=== PATIENT | male | born 1945 | race Caucasian/White ===

== ENCOUNTER 2016-05-27 10:05 | Emergency (ER) | payer BC, MEDICARE ==
[~2016-05-27] VITALS: Ht 177.8 cm; Wt 83.9 kg
--- OUTSIDE RECORDS SUMMARY | 2016-05-27 10:16 | XMS REPORT | Continuity of Care Document ---
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 If you do not see the information that you expected, contact Release of Information in the Health Information Management department at [phone] for further assistance in locating additional records.[facility] Active Allergies and Adverse Reactions No Known Allergies Current Medications Prescription Sig. Disp. Refills Start End Date Status Date IBUPROFEN (ADVIL PO) Take by mouth as Needed. Active HYDROcodone/acetaminophen Take 1 Tab by mouth every Active (NORCO; VICODIN) 5-325 mg 4 hours as needed for tablet Pain GUAIFENESIN (MUCINEX PO) Take by mouth. Active Active Problems No known active problems Social History Tobacco Use Types Packs/Day Years Used Date Never Smoker Last Filed Vital Signs Vital Sign Reading Time Taken Blood Pressure 148/68 01/22/2016 10:39 AM CDT Pulse 68 01/22/2016 10:19 AM CDT Temperature 36.4 C (97.5 F) 01/22/2016 9:50 AM CDT Respiratory Rate 16 01/22/2016 9:50 AM CDT Height 1.778 m (5' 10") 01/22/2016 9:50 AM CDT Weight 81.647 kg (180 lb) 01/22/2016 9:50 AM CDT Body Mass Index 25.83 01/22/2016 9:50 AM CDT Oxygen Saturation 100% 01/22/2016 10:39 AM CDT Plan of Care Health Maintenance Due Date Last Done Comments Hepatitis C Screening 1944 Physical (Comprehensive) 1951 Exam Pertussis Vaccine 1955 Tetanus Vaccine 1961 Colorectal Cancer 1994 Screening Shingles Vaccine 2004 Prevnar/Pneumovax (#1) 2009 Influenza Vaccine 11/23/2015 Results from Last 3 Months Not on file
--- NOTE | 2016-05-27 11:09 | ED GU-Male ---
General Stated Complaint: PROSTATE PROBLEMS Source: patient Exam Limitations: no limitations History of Present Illness Time seen by provider: 11:06 Initial Comments To ER with perirectal pain/perineal pain for the past 4 days. [facility] Historically, his PSA had been normal last year it was 2. This year it raised to 17. However he's had no problems with urination or pain. Starting 4 days ago he had severe perineal/perirectal pain worse when sitting on his exercise bike. He states he is still able to urinate though he does have a burning sensation upon urination. 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 Timing/Duration: week, getting worse Location: other Radiation: none Activities at Onset: none Prior Genitourinary Problems: none Associated Symptoms: No abdominal pain, No dysuria, No fever/chills, No lower back pain, No nausea/vomiting, No urinary frequency Allergies and Home Medications Allergies Coded Allergies: No Allergy Information Available (Unverified , 05/27/16) Home Medications 1 TAB PO BID (Reported) Hydrocodone/Acetaminophen 1 Each Tablet 1 EACH PO Daily and Noon (Reported) Ibuprofen 800 Mg Tablet 800 MG PO HS (Reported) [place] 3 Polyunsat Fatty Acids 1,000 Mg Cap 1,000 MG PO DAILY (Reported) Sildenafil Citrate 100 Mg Tablet 100 MG PO PRN (Reported) Tadalafil 2.5 Mg Tablet 2.5 MG PO DAILY (Reported) Constitutional: see HPINo chills, No fever EENTM: see HPI Respiratory: no symptoms reported Cardiovascular: no symptoms reported Genitourinary: see HPI burningdenies dysuria, denies frequency, denies flank pain, denies hematuria, denies incontinence, denies pain Musculoskeletal: no symptoms reported Skin: no symptoms reported Psychiatric/Neurological: No Symptoms Reported Endocrine: No Symptoms Reported Hematologic/Lymphatic: No Symptoms Reported Past Pcovvwl-Eqrcmc-Nwkvnv Hx Patient Social History Recent Foreign Travel: No Contact w/Someone Who Travel: No Physical Exam Vital Signs Vital Sign - Last 12Hours 05/27/16 11:09 Pulse 66 Resp 18 B/P 158/90 Pulse Ox 97 O2 Delivery Room Air Capillary Refill : General Appearance: WD/WN no apparent distress HEENT: PERRL/EOMI normal ENT inspection Neck: non-tender full range of motion Cardiovascular: regular rate, rhythm no murmur Respiratory: normal breath sounds no respiratory distress no accessory muscle use Gastrointestinal: normal bowel sounds non tender soft Rectal: tenderness (prostate is significantly enlarged and very tender and firm on digital rectal exam) Extremities: normal range of motion non-tender Neurologic/Psychiatric: alert normal mood/affect oriented x 3 Skin: normal color warm/dry Progress/Results/Core Measures Results/Orders Lab Results Laboratory Tests Test 05/27/16 11:02 Range/Units Alanine Aminotransferase (ALT/SGPT) 20 0-55 U/L Albumin 4.2 3.2-4.5 G/DL Alkaline Phosphatase 72 40-136 U/L Anion Gap 9 5-14 MMOL/L Aspartate Amino Transf (AST/SGOT) 18 5-34 U/L BUN/Creatinine Ratio 24 Basophils # (Auto) 0.0 0.0-0.1 10^3/uL Basophils (%) (Auto) 0 0-10 % Blood Urea Nitrogen 25 H 7-18 MG/DL Calcium Level 9.3 8.5-10.1 MG/DL Carbon Dioxide Level 23 21-32 MMOL/L Chloride Level 106 98-107 MMOL/L Creatinine 1.03 0.60-1.30 MG/DL Eosinophils # (Auto) 0.1 0.0-0.3 10^3/uL Eosinophils (%) (Auto) 1 0-10 % Estimat Glomerular Filtration Rate > 60 Glucose Level 107 H 70-105 MG/DL Hematocrit 39 L 40-54 % Hemoglobin 13.4 13.3-17.7 G/DL Lymphocytes # (Auto) 1.4 1.0-4.0 X 10^3 Lymphocytes (%) (Auto) 16 12-44 % Mean Corpuscular Hemoglobin 31 25-34 PG Mean Corpuscular Hemoglobin Concent 34 32-36 G/DL Mean Corpuscular Volume 91 80-99 FL Mean Platelet Volume 9.9 7.4-10.4 FL Monocytes # (Auto) 1.2 H 0.0-1.0 X 10^3 Monocytes (%) (Auto) 13 H 0-12 % Neutrophils # (Auto) 6.4 1.8-7.8 X 10^3 Neutrophils (%) (Auto) 70 42-75 % Platelet Count 265 130-400 10^3/uL Potassium Level 4.5 3.6-5.0 MMOL/L Red Blood Count 4.32 L 4.35-5.85 10^6/uL Red Cell Distribution Width 13.8 10.0-14.5 % Sodium Level 138 135-145 MMOL/L Total Bilirubin 0.4 0.1-1.0 MG/DL Total Protein 6.7 6.4-8.2 G/DL Urine Bacteria NEGATIVE /HPF Urine Bilirubin NEGATIVE NEGATIVE Urine Casts NONE /LPF Urine Clarity CLEAR Urine Color YELLOW Urine Crystals NONE /LPF Urine Culture Indicated NO Urine Glucose (UA) NEGATIVE NEGATIVE Urine Ketones NEGATIVE NEGATIVE Urine Leukocyte Esterase NEGATIVE NEGATIVE Urine Mucus NEGATIVE /LPF Urine Nitrite NEGATIVE NEGATIVE Urine Protein NEGATIVE NEGATIVE Urine RBC RARE /HPF Urine RBC (Auto) NEGATIVE NEGATIVE Urine Specific [place] 1.015 L 1.016-1.022 Urine Squamous Epithelial Cells NONE /HPF Urine Urobilinogen NORMAL NORMAL MG/DL Urine WBC NONE /HPF Urine pH 6 5-9 White Blood Count 9.2 4.3-11.0 10^3/uL My Orders Orders-MARIJA WINSTON APRN Ua Culture If Indicated (05/27/16 10:59) Cbc With Automated Diff (05/27/16 10:59) Comprehensive Metabolic Panel (05/27/16 10:59) Saline Lock/Iv-Start (05/27/16 10:59) Ct Abdomen/Pelvis W (05/27/16 10:59) Psa Screen (05/27/16 10:59) Iohexol Injection (Omnipaque 350 Mg/Ml 1 (05/27/16 12:00) Ns (Ivpb) (Sodium Chloride 0.9% Ivpb Bag (05/27/16 12:00) Ns Iv 500 Ml (Sodium Chloride 0.9%) (05/27/16 12:00) Medications Given in ED Current Medications Medications Dose Ordered Sig/Ari Route Start Time Stop Time Status Last Admin Dose Admin Iohexol 100 ml ONCE ONCE IV 05/27/16 12:00 05/27/16 12:01 DC 05/27/16 11:56 100 ML Sodium Chloride 100 ml ONCE ONCE IV 05/27/16 12:00 05/27/16 12:01 DC 05/27/16 11:56 80 ML Vital Signs/I&O Vital Sign - Last 12Hours 05/27/16 11:09 Pulse 66 Resp 18 B/P 158/90 Pulse Ox 97 O2 Delivery Room Air Departure Communication Progress Notes I did discuss the case with Dr. Green who recommends Levaquin 750 daily for 2 weeks and Pyridium Impression Impression: Primary Impression: Prostatitis Disposition: 01 HOME, SELF-CARE Condition: Stable Departure-Patient Inst. Decision time for Depature: 13:07 Referrals: NO,LOCAL PHYSICIAN (PCP) Primary Care Physician BURKE GREEN MD Patient Instructions: Prostatitis (DC) Add. Discharge Instructions: 1. Drink plenty of fluids [facility]. [facility]/approval to see Dr. Green 3. Return to ER for any worsening such as inability to urinate, fevers Scripts Phenazopyridine HCl (Pyridium)100 Mg [id number] Mg PO TID #9 TAB Prov:MARIJA WINSTON APRN 05/27/16 Levofloxacin (Levaquin)750 Mg [id number] Mg PO DAILY #14 TAB Prov:MARIJA WINSTON COMMERCIAL RETOUCHER 05/27/16 Copy Copies To 1: BURKE GREEN MD, PETER J APRN May 27, 2016 11:09
[2016-05-27 11:13] LABS: BASOPHILS % (AUTO) 0 % (0-10); EOSINOPHILS # (AUTO) 0.1 10^3/uL (0.0-0.3); EOSINOPHILS % (AUTO) 1 % (0-10); LYMPHOCYTES # (AUTO) 1.4 X 10^3 (1.0-4.0); LYMPHOCYTES % (AUTO) 16 % (12-44); MEAN CORPUSCULAR HEMOGLOBIN 31 PG (25-34); MEAN CORPUSCULAR HGB CONC 34 G/DL (32-36); MEAN CORPUSCULAR VOLUME 91 FL (80-99); MEAN PLATELET VOLUME 9.9 FL (7.4-10.4); MONOCYTES # (AUTO) 1.2 X 10^3 (0.0-1.0); MONOCYTES % (AUTO) 13 % (0-12); NEUTROPHILS # (AUTO) 6.4 X 10^3 (1.8-7.8); NEUTROPHILS % (AUTO) 70 % (42-75); PLATELET COUNT 265 10^3/uL (130-400); RED BLOOD COUNT 4.32 10^6/uL (4.35-5.85); RED CELL DISTRIBUTION WIDTH 13.8 % (10.0-14.5); WHITE BLOOD COUNT 9.2 10^3/uL (4.3-11.0)
[2016-05-27 11:14] LABS: BILIRUBIN,URINE NEGATIVE (NEGATIVE); KETONES,URINE NEGATIVE (NEGATIVE); LEUKOCYTE ESTERASE ,URINE NEGATIVE (NEGATIVE); NITRITE,URINE NEGATIVE (NEGATIVE); PH,URINE 6 (5-9); PROTEIN,URINE NEGATIVE (NEGATIVE); UROBILINOGEN,URINE NORMAL (NORMAL)
[2016-05-27] MEDS ORDERED: SILD100T PO (11:27)
[2016-05-27] MEDS ORDERED: OMG1KC PO (11:27)
[2016-05-27] MEDS ORDERED: TADA2.5T PO (11:27)
[2016-05-27] MEDS ORDERED: IBUP-1780 PO (11:27)
[2016-05-27] MEDS ORDERED: BETAPROSTATE PO (11:27)
[2016-05-27] MEDS ORDERED: HYDR-3812 PO (11:27)
[2016-05-27 11:37] LABS: ALANINE AMINOTRANSFERASE 20 U/L (0-55); ALBUMIN 4.2 G/DL (3.2-4.5); ANION GAP 9 MMOL/L (5-14); ASPARTATE AMINO TRANSFERASE 18 U/L (5-34); BILIRUBIN,TOTAL 0.4 MG/DL (0.1-1.0); BLOOD UREA NITROGEN 25 MG/DL (7-18); BUN/CREATININE RATIO 24; CALCIUM 9.3 MG/DL (8.5-10.1); CARBON DIOXIDE 23 MMOL/L (21-32); CHLORIDE 106 MMOL/L (98-107); CREATININE SERUM 1.03 MG/DL (0.60-1.30); GFR ESTIMATED > 60; GLUCOSE 107 MG/DL (70-105); POTASSIUM 4.5 MMOL/L (3.6-5.0); SODIUM 138 MMOL/L (135-145); TOTAL PROTEIN 6.7 G/DL (6.4-8.2)
[2016-05-27] MEDS ORDERED: NS 100 ML (IVPB) BAG IV ONE (12:00)
[2016-05-27] MEDS ORDERED: IOHEXOL 350 MG/ML 100 ML (OMNIPAQUE 350) VIAL IV ONE (12:00)
[2016-05-27] MEDS ORDERED: NS IV 500 ML 500 ML IV SCH (12:00)
--- NOTE | 2016-05-27 12:49 | Diagnostic Imaging Report ---
PROCEDURE: CT abdomen and pelvis with contrast. TECHNIQUE: Multiple contiguous axial images were obtained through the abdomen and pelvis after administration of intravenous contrast. INDICATION: Pelvic pain, history of prostatomegaly. COMPARISON: None. DISCUSSION: The visualized lung bases are unremarkable. Normal heart size. No pleural or pericardial fluid. Antecedent granulomatous disease is noted, benign. A 1.9 x 1.2-cm low-attenuation nodule within the right hepatic dome is indeterminate though statistically represents a cyst or hemangioma in the absence of a known primary malignancy. The liver is otherwise unremarkable. The gallbladder, pancreas, stomach, spleen, and adrenal glands are unremarkable. Simple-appearing 3-cm left renal cyst, likely benign. No hydronephrosis or renal stone identified. Linear low-attenuation focus within the posterior right kidney likely represents scarring. The prostate is enlarged measuring 5.8 x 3.6 cm. Urinary bladder is unremarkable. Mild diverticulosis with no secondary evidence for diverticulitis. Constipation is noted. No obstruction, pneumatosis, pneumoperitoneum. The abdominal aorta is normal in caliber. No pathologically enlarged lymph nodes identified. No ascites. Degenerative changes are present within the spine. No acute osseous abnormality identified. IMPRESSION: 1. Prostatomegaly. 2. Probable cysts noted within the liver and left kidney. 3. Constipation. Dictated by: Dictated on workstation # [id number]
[2016-05-27] MEDS ORDERED: PHEN-639 PO (13:09)
[2016-05-27] MEDS ORDERED: LEVO750T9 PO (13:09)
[2016-05-27 13:33] VITALS: BP 162/74
== END 2016-05-27 13:39 | disposition home or self-care (01) ==
LOC: EDUNIT# 10:05 → ER 10:12
DX: N41.9 Inflammatory disease of prostate, unspecified (principal)
CPT/HCPCS: 36415; 74177; 80053; 81000; 84153; 85025; 96360

== ENCOUNTER → 2016-07-24 | Outpatient (CLI) | payer MEDICARE, OTHER ==
[~2016-07-24] MED LIST: BETAPROSTATE PO; HYDR-3812 PO; IBUP-1780 PO; LEVO750T9 PO; OMG1KC PO; PHEN-639 PO; SILD100T PO; TADA2.5T PO
--- NOTE | 2016-07-24 09:32 | Diagnostic Imaging Report ---
PROCEDURE: CT sinuses without contrast TECHNIQUE: Multiple contiguous axial images were obtained through the sinuses without the use of intravenous contrast. Coronal and sagittal reformations were then performed. INDICATION: Chronic sinusitis. FINDINGS: Bilateral air-fluid levels in the maxillary sinuses are seen. There is some mild mucosal thickening in the ostiomeatal complex region on both sides resulting in its narrowing. There is minimal mucosal thickening in the rest of the maxillary sinuses. The ethmoid air cells and the sphenoidal sinuses are clear. The frontal sinuses are relatively small in size and are clear. There is minimal mucosal thickening along the inferior turbinates and minimal nasoseptal deviation to the left with no mass or obliteration of the nasal cavity. Mild deformity in the nasal bones is suggestive of an old nasal bone fracture on both sides. The orbits appear grossly unremarkable. The mastoid air cells and middle ear cavities appear clear. IMPRESSION: There is mild mucosal thickening along the ostiomeatal complex of the maxillary sinuses with associated bilateral maxillary air-fluid levels which may relate to acute sinusitis or retained secretions. Correlate clinically. Dictated by: Dictated on workstation # [id number]
== END ==
LOC: RAD 08:32
PROVIDERS: ATTEND Otolaryngology Otolaryngology/Facial Plastic Surgery
DX: J32.9 Chronic sinusitis, unspecified (principal)
CPT/HCPCS: 70486

== ENCOUNTER → 2017-05-08 | Outpatient (CLI) | payer MEDICARE ==
[~2017-05-08] MED LIST changes: +ACHD5005 PO; -HYDR-3812 PO
--- NOTE | 2017-05-08 14:23 | Diagnostic Imaging Report ---
INDICATION: Injury to the right shoulder. TIME OF EXAM: 01:21 p.m. FINDINGS: Internal and external rotation views of the right shoulder demonstrate normal glenohumeral and acromioclavicular alignment. Acromiohumeral space is normal. No fracture or dislocation is seen. There is a calcified granuloma in the right upper lobe. IMPRESSION: No acute bony abnormality is detected. Report was faxed to Maylin Escamilla by patricia at 2:25 p.m. Dictated by: Dictated on workstation # [id number]
== END ==
LOC: RAD 12:44
PROVIDERS: ATTEND Nurse Practitioner Family
DX: M25.511 Pain in right shoulder (principal)
CPT/HCPCS: 73030

== ENCOUNTER 2019-05-17 09:46 | Emergency (ER) | payer OTHER, MEDICARE ==
[~2019-05-17] VITALS: Ht 177.8 cm; Wt 83.9 kg
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
[2019-05-17 10:08] LABS: BASOPHILS % (AUTO) 0 % (0-10); EOSINOPHILS # (AUTO) 0.6 10^3/uL (0.0-0.3); EOSINOPHILS % (AUTO) 8 % (0-10); HEMATOCRIT 42 % (40-54); HEMOGLOBIN 14.3 G/DL (13.3-17.7); LYMPHOCYTES # (AUTO) 1.6 X 10^3 (1.0-4.0); LYMPHOCYTES % (AUTO) 19 % (12-44); MEAN CORPUSCULAR HEMOGLOBIN 30 PG (25-34); MEAN CORPUSCULAR HGB CONC 34 G/DL (32-36); MEAN CORPUSCULAR VOLUME 89 FL (80-99); MEAN PLATELET VOLUME 10.2 FL (7.4-10.4); MONOCYTES % (AUTO) 12 % (0-12); NEUTROPHILS # (AUTO) 4.9 X 10^3 (1.8-7.8); NEUTROPHILS % (AUTO) 60 % (42-75); PLATELET COUNT 255 10^3/uL (130-400); RED CELL DISTRIBUTION WIDTH 14.1 % (10.0-14.5); WHITE BLOOD COUNT 8.2 10^3/uL (4.3-11.0)
[2019-05-17 10:26] LABS: INR 0.9 (0.8-1.4); PROTHROMBIN TIME PATIENT 12.6 SEC (12.2-14.7)
[2019-05-17 10:35] LABS: ALANINE AMINOTRANSFERASE 28 U/L (0-55); ALBUMIN 4.4 GM/DL (3.2-4.5); ALKALINE PHOSPHATASE 63 U/L (40-136); AMYLASE 77 U/L (25-125); BILIRUBIN,TOTAL 0.5 MG/DL (0.1-1.0); BUN/CREATININE RATIO 21; CALCIUM 9.5 MG/DL (8.5-10.1); CARBON DIOXIDE 24 MMOL/L (21-32); CHLORIDE 105 MMOL/L (98-107); CREATININE SERUM 1.16 MG/DL (0.60-1.30); GFR ESTIMATED > 60; GLUCOSE 129 MG/DL (70-105); LIPASE 43 U/L (8-78); POTASSIUM 4.1 MMOL/L (3.6-5.0); SODIUM 138 MMOL/L (135-145); TOTAL PROTEIN 6.9 GM/DL (6.4-8.2)
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
[2019-05-17] MEDS ORDERED: TRAM-42 PO (11:45)
[2019-05-17] MEDS ORDERED: CYCL5TAB PO (11:45)
[2019-05-17] MEDS ORDERED: MELO15TA14 PO (11:45)
[2019-05-17] MEDS ORDERED: KETOROLAC 30 MG/ML VIAL IVP ONE (11:45)
[2019-05-17 12:35] VITALS: BP 165/90
== END 2019-05-17 12:36 | disposition home or self-care (01) ==
LOC: EDUNIT# 09:46 → ER 09:46
DX: S40.011A Contusion of right shoulder, initial encounter (principal); S40.012A Contusion of left shoulder, initial encounter; S16.1XXA Strain of muscle, fascia and tendon at neck level, initial encounter; S40.021A Contusion of right upper arm, initial encounter; S40.022A Contusion of left upper arm, initial encounter; S43.121A Dislocation of right acromioclavicular joint, 100%-200% displacement, initial encounter; G89.29 Other chronic pain; Z88.2 Allergy status to sulfonamides; Z87.891 Personal history of nicotine dependence; Z96.653 Presence of artificial knee joint, bilateral; V85.5XXA Driver of special construction vehicle injured in nontraffic accident, initial encounter
CPT/HCPCS: 36415; 70450; 71045; 72125; 72128; 72131; 72170; 80053; 82150; 83690; 83735; 85025; 85610; 85730; 93041; 96374

== ENCOUNTER → 2019-05-18 | Outpatient (CLI) | payer OTHER, MEDICARE ==
[~2019-05-18] MED LIST changes: +CYCL5TAB PO; +MELO15TA14 PO; +TRAM-42 PO
== END ==
LOC: ORTHO 10:17
PROVIDERS: ATTEND Orthopaedic Surgery
DX: S43.51XA Sprain of right acromioclavicular joint, initial encounter (principal); M50.322 Other cervical disc degeneration at C5-C6 level; M75.121 Complete rotator cuff tear or rupture of right shoulder, not specified as traumatic

== ENCOUNTER → 2019-06-07 | Outpatient (CLI) | payer OTHER, MEDICARE | LOC: ORTHO 11:09 | PROVIDERS: ATTEND Orthopaedic Surgery | DX: S43.51XA Sprain of right acromioclavicular joint, initial encounter (principal); M50.322 Other cervical disc degeneration at C5-C6 level; M75.121 Complete rotator cuff tear or rupture of right shoulder, not specified as traumatic | CPT/HCPCS: 99213 ==

== ENCOUNTER → 2022-02-28 | Outpatient (CLI) | payer OTHER ==
--- NOTE | 2022-02-28 13:34 | Diagnostic Imaging Report ---
EXAMINATION: CT chest without contrast. TECHNIQUE: Multiple contiguous axial images were obtained through the chest without the use of intravenous contrast. All CT scans use one or more of the following dose optimizing techniques: automated exposure control, MA and/or KvP adjustment based on patient size and exam type or iterative reconstruction. HISTORY: Lung nodule COMPARISON: None available. FINDINGS: There is no edema or pneumonia. No pleural effusion. No pneumothorax. No suspicious nodules. There is a calcified granuloma in the right upper lobe. There are calcified granulomas in the left lower lobe. There is no axillary or supraclavicular lymphadenopathy. There is no mediastinal lymphadenopathy. There are calcified mediastinal lymph nodes. Heart size is normal. There are severe coronary artery calcifications. No pericardial effusion. Aorta is normal in caliber. Limited views of the upper abdomen show cysts in the liver and kidneys. There are no suspicious osseus lesions. IMPRESSION: 1. No suspicious pulmonary nodules. Dictated by: Dictated on workstation # [id number]
== END ==
LOC: RAD 09:45
PROVIDERS: ATTEND Emergency Medicine
DX: R91.1 Solitary pulmonary nodule (principal)
CPT/HCPCS: 71250